=== PATIENT | female | born 1975 | race Caucasian/White ===

== ENCOUNTER 2019-03-18 10:49 | Emergency (ER) | payer OTHER ==
[~2019-03-18] VITALS: Ht 167.6 cm; Wt 61.2 kg
[~2019-03-18 10:49] MED LIST: KETO10 PO
[2019-03-18] MEDS ORDERED: Cleocin HCl150 MG PO (11:37)
[2019-03-18] MEDS ORDERED: Naprosyn500 MG PO (13:09)
== END 2019-03-18 12:12 | disposition home or self-care (01) ==
LOC: ER 10:49
DX: K04.7 Periapical abscess without sinus (principal); Z88.0 Allergy status to penicillin; F17.200 Nicotine dependence, unspecified, uncomplicated
CPT/HCPCS: 99282

== ENCOUNTER 2023-01-17 17:11 | Emergency (ER) | payer OTHER ==
[~2023-01-17] VITALS: Ht 167.6 cm; Wt 71.7 kg
[~2023-01-17 17:11] MED LIST changes: +Cleocin HCl150 MG PO; +Naprosyn500 MG PO
[2023-01-17] MEDS ORDERED: EPIPEN0.3 MG/0.1 IM (18:24)
[2023-01-17] MEDS ORDERED: BENADRYL25 M1 PO (18:24)
[2023-01-17] MEDS ORDERED: FAMO20 PO (18:24)
[2023-01-17] MEDS ORDERED: PRED20 PO (18:24)
[2023-01-17 18:35] VITALS: BP 131/87
== END 2023-01-17 18:37 | disposition home or self-care (01) ==
LOC: ER 17:11
DX: R13.10 Dysphagia, unspecified (principal); T41.3X5A Adverse effect of local anesthetics, initial encounter; F17.210 Nicotine dependence, cigarettes, uncomplicated; Z88.0 Allergy status to penicillin; Z88.4 Allergy status to anesthetic agent
CPT/HCPCS: 96374; 96375; 99283-25; J1100

== ENCOUNTER → 2024-12-03 | Outpatient (CLI) | payer OTHER ==
[~2024-12-03] MED LIST changes: +BENADRYL25 M1 PO; +EPIPEN0.3 MG/0.1 IM; +FAMO20 PO; +PRED20 PO
[2024-12-09 03:52] LABS: HPV HIGH RISK BY TMA Not Detected; HPV SOURCE Cervical
== END ==
LOC: LAB SHORT 15:57 → LAB 15:57
PROVIDERS: Student in an Organized Health Care Education/Training Program
DX: Z12.4 Encounter for screening for malignant neoplasm of cervix (principal)
CPT/HCPCS: 87624; G0123